=== PATIENT | female | born 1995 | race Caucasian/White ===

== ENCOUNTER 2016-12-08 13:10 | Emergency (ER) | payer OTHER ==
--- NOTE | 2016-12-08 13:16 | PDOC ---
Attending Attestation - Resident Resident Name: Dane Basurto - ED Attending Attestation I have performed the following: I have examined & evaluated the patient, The case was reviewed & discussed with the resident, I agree w/resident's findings & plan, Exceptions are as noted - HPI HPI: 12/08/16 13:14 The patient is a 21-year-old female, with no significant past medical history, who presents to the emergency department complaining of dysuria, urinary frequency, urgency and hesitancy. She does not know if she could be as her periods are irregular. 12/08/16 13:27 - Physicial Exam PE: 12/08/16 13:28 She is well appearing and in no acute distress Abdomen is soft and non-tender No CVA tenderness - Medical Decision Making 12/08/16 13:50 She is well-appearing and in no acute distress There is no evidence of sepsis or pyelonephritis Will treat with Keflex Clinical impression: UTI I discussed the physical exam findings, ancillary test results and final diagnoses with the patient. I answered all of the patient's questions. The patient was satisfied with the care received and felt comfortable with the discharge plan and treatment plan. The patient will call their primary care physician within 24 hours to arrange follow-up and will return to the Emergency Department with any new, persistent or worsening symptoms.
--- NOTE | 2016-12-08 13:22 | PDOC ---
History of Present Illness - General Chief Complaint: Urinary Problem Stated Complaint: URINARY SYMPTOMS Time Seen by Provider: 12/08/16 13:13 History Source: Patient Exam Limitations: No Limitations - History of Present Illness Travel History: No Initial Comments: 21 yo F with h/o metrorrhagia presented to the ED with pain on urination since this morning. She stated that she's been having a vague lower abd pain for a week which suddenly became severe this AM, non-radiating, 9/10, burning like, worse with urination, associated with frequency and subjective fever. Her LMP was end of October. Denies back pain, hematuria, n/v, chest pain, sob, h/o stone. Past History - Past Medical History Allergies/Adverse Reactions: Allergies Allergy/AdvReac Type Severity Reaction Status Date / Time No Known Allergies Allergy Verified 12/08/16 13:12 Home Medications: Ambulatory Orders Cephalexin Monohydrate [Keflex -] 500 mg PO Q8H #15 capsule 12/08/16 - Psycho/Social/Smoking Cessation Hx Anxiety: No Suicidal Ideation: Yes Smoking Status: Yes Smoking History: Never smoked Number of Cigarettes Smoked Daily: 0 Review of Systems - Review of Systems Able to Perform ROS?: Yes Is the patient limited Slovenian proficient: No Constitutional: Yes: Chills, Fever Respiratory: No: Cough, Shortness of Breath Cardiac (ROS): No: Chest Pain : Yes: Burning, Discharge (clear), Frequency, Pain. No: Hematuria Musculoskeletal: No: Back Pain *Physical Exam - Physical Exam General Appearance: No: Apparent Distress Respiratory/Chest: positive: Lungs Clear, Normal Breath Sounds Cardiovascular: positive: Regular Rhythm, Regular Rate, S1, S2. negative: Murmur Gastrointestinal/Abdominal: positive: Normal Bowel Sounds. negative: Distended , Guarding, Rebound, Tenderness Musculoskeletal: negative: CVA Tenderness, CVA Tenderness (R) Neurologic: positive: Fully Oriented, Alert Medical Decision Making - Medical Decision Making 12/08/16 13:31 Will obtain UA and test. *DC/Admit/Observation/Transfer Diagnosis at time of Disposition: UTI (urinary tract infection) Qualifiers: Urinary tract infection type: acute cystitis Hematuria presence: without hematuria Qualified Code(s): N30.00 - Acute cystitis without hematuria - Discharge Dispostion Disposition: HOME Condition at time of disposition: Stable Admit: No - Prescriptions Prescriptions: Cephalexin Monohydrate [Keflex -] 500 mg PO Q8H #15 capsule - Patient Instructions Additional Instructions: You were seen in the ER for acute urinary tract infection. You can keflex 500mg 3 times a day for 5 days. Keep yourself hydrated and return to the ER if you develop high grade fever, worsening abd pain or back pain.
[2016-12-08 13:30] VITALS: BP 109/74; PULSE 62; TEMP 98.1; BMI 29.1
[2016-12-08 13:37] LABS: URINE BILIRUBIN Negative (NEGATIVE); URINE BLOOD 3+ (NEGATIVE); URINE COLOR AMBER; URINE GLUCOSE (UA) Negative (NEGATIVE); URINE KETONE Negative (NEGATIVE); URINE LEUK ESTERASE 3+ (NEGATIVE); URINE NITRITE Negative (NEGATIVE); URINE PROTEIN Trace (NEGATIVE); URINE UROBILINOGEN 4.0 E.U/dl (0.2-1.0)
[2016-12-08 13:38] LABS: URINE APPEARANCE SL CLOUDY
[2016-12-08 13:46] LABS: URINE BACTERIA RARE /hpf (NEGATIVE); URINE RBC 20-30 /hpf (0-3); URINE WBC 50-80 (3-5)
== END 2016-12-08 14:00 | disposition home or self-care (01) ==
LOC: FER 13:10
DX: N39.0 Urinary tract infection, site not specified (principal); F17.210 Nicotine dependence, cigarettes, uncomplicated
CPT/HCPCS: 81003; 81015; 84703; 99282-25

== ENCOUNTER 2019-03-28 16:13 | Emergency (ER) | payer OTHER | END 2019-03-28 18:45 | disposition home or self-care (01) | LOC: FER 16:13 ==

== ENCOUNTER 2023-07-03 08:00 | Emergency (ER) | payer OTHER ==
[2023-07-03 08:08] VITALS: BP 116/78; PULSE 84; RESP 16; TEMP 98.8; BMI 40.1
[2023-07-03] MEDS ORDERED: SODIUM CHLORIDE 0.9% 500 ML INFUS.BAG IV ONE (08:14)
[2023-07-03 09:37] LABS: ALBUMIN 4.8 g/dl (3.4-5.0); BILIRUBIN,TOTAL 0.7 mg/dl (0.2-1); CALCIUM 9.9 mg/dl (8.5-10.1); POTASSIUM 4.2 mmol/L (3.5-5.1)
== END 2023-07-03 09:57 | disposition home or self-care (01) ==
LOC: FER 08:00
DX: R19.7 Diarrhea, unspecified (principal); R10.9 Unspecified abdominal pain
CPT/HCPCS: 36415; 80053; 99283-25